=== PATIENT | female | born 1995 | race Caucasian/White ===

== ENCOUNTER 2023-11-21 15:26 | Outpatient (CLI) | payer BC, SELFPAY | END 2023-11-21 15:27 | disposition home or self-care (01) | LOC: NFLDREF 15:27 | PROVIDERS: Visit Provider Registered Nurse | DX: Z01.419 Encounter for gynecological examination (general) (routine) without abnormal findings (principal); Z13.6 Encounter for screening for cardiovascular disorders | CPT/HCPCS: 80061 ==

== ENCOUNTER 2024-04-09 07:53 | Outpatient (CLI) | payer BC, SELFPAY ==
--- NOTE | 2024-04-09 08:00 | CRLHL7_ITS ---
For Patients: As a result of the Century Cures Act, medical imaging exams and procedure reports are released immediately into your electronic medical record. You may view this report before your referring provider. If you have questions, please contact your health care provider. INDICATION: First trimester scan, establish dates. COMPARISON: None. TECHNIQUE: Real-time stockton-scale imaging of the pelvis was performed. FINDINGS: Intrauterine gestational sac measures 1.9 cm, 6 weeks 6 days. pole is present measuring 6.7 millimeters, 6 weeks 4 days. Yolk sac measures 5.5 millimeters. heart rate 121 beats per minute. Corpus luteal cyst right ovary. Unremarkable left ovary. No subchorionic hemorrhage. IMPRESSION: Early intrauterine with sonographic gestational age 6 weeks 4 days and sonographic due date of 11/29/2024. Upper limits normal yolk sac. Lower limits normal heart rate. Short-term follow-up recommended. Dictated by Stuart Yu MD @ 04/09/2024 10:26:49 AM (Electronically Signed)
== END 2024-04-09 07:54 | disposition home or self-care (01) ==
LOC: US 07:54
PROVIDERS: Visit Provider Physician Assistant
DX: Z34.91 Encounter for supervision of normal pregnancy, unspecified, first trimester (principal); Z3A.01 Less than 8 weeks gestation of pregnancy
CPT/HCPCS: 76817; 86592; 86703; 86704; 86706; 86762; 86787; 86803; 86850; 86900; 86901; 87086; 87340; 87491; 87591

== ENCOUNTER 2024-04-26 13:49 | Outpatient (CLI) | payer BC, SELFPAY ==
--- NOTE | 2024-04-26 14:00 | CRLHL7_ITS ---
For Patients: As a result of the Century Cures Act, medical imaging exams and procedure reports are released immediately into your electronic medical record. You may view this report before your referring provider. If you have questions, please contact your health care provider. OB ULTRASOUND COMPARISON: 04/09/2024. LMP: 02/17/2024. LUL by LMP: 11/23/2024. GA: 9 weeks 6 days. LUL by US: 11/29/2024. GA: 6 w, 4 d. INDICATION: Follow-up viability. FINDINGS: CRL: 2.1 cm. 8 w 5 d. LUL: 12/01/2024. FHR: 165 BPM. Gestational sac: 3.4 cm. Appears within normal limits. Yolk sac: 6.3 mm. Appears within normal limits. Right ovary: Within normal limits. 2.9 x 2.5 x 2.1 cm. Left ovary: N/V. IMPRESSION: 1. There is a viable IUP measuring 8 weeks 5 days. 2. Diffuse heterogeneity surrounding the gestational sac, potentially subchorionic hemorrhage. Short interval follow-up recommended. Alexandro Roger M.D. Body/Diagnostic Radiologist [email or web address] BLAYNE/digna sawyer/Dictated by: Alexandro Roger MD @ 04/27/2024 10:06:00 AM (Electronically Signed)
== END 2024-04-26 13:50 | disposition home or self-care (01) ==
LOC: US 13:50
PROVIDERS: Visit Provider Physician Assistant
DX: Z34.91 Encounter for supervision of normal pregnancy, unspecified, first trimester (principal); Z3A.09 9 weeks gestation of pregnancy
CPT/HCPCS: 76817

== ENCOUNTER 2024-05-07 12:57 | Outpatient (CLI) | payer BC, SELFPAY ==
--- NOTE | 2024-05-07 13:00 | CRLHL7_ITS ---
For Patients: As a result of the Century Cures Act, medical imaging exams and procedure reports are released immediately into your electronic medical record. You may view this report before your referring provider. If you have questions, please contact your health care provider. INDICATION: Follow-up hemorrhage COMPARISON: 04/26/2024 TECHNIQUE: Real-time stockton-scale imaging of the pelvis was performed. FINDINGS: Large subchorionic hemorrhage on the left noted measuring approximately 7.0 x 4.3 x 2.5 cm, previously measuring 5.4 x 3.5 x 4.8 cm. pole crown-rump length 4.2 cm, 11 weeks 0 days. Sonographic due date of 11/26/2024. Corpus luteal cyst right ovary. Unremarkable right ovary. Normal yolk sac measuring 4.6 millimeters. heart rate 146 beats per minute. Midgut deformity at the umbilical insertion is present. IMPRESSION: Increased size of the subchorionic hemorrhage now measuring up to 7 cm. Prominence of the midgut at the umbilical insertion, probably normal but can not exclude midgut herniation. Follow-up recommended. Dictated by Stuart Yu MD @ 05/09/2024 6:12:07 PM (Electronically Signed)
== END 2024-05-07 12:58 | disposition home or self-care (01) ==
LOC: US 12:58
PROVIDERS: Visit Provider Physician Assistant
DX: O20.8 Other hemorrhage in early pregnancy (principal)
CPT/HCPCS: 76817

== ENCOUNTER 2024-05-21 09:13 | Outpatient (CLI) | payer BC, SELFPAY ==
--- NOTE | 2024-05-21 09:15 | CRLHL7_ITS ---
For Patients: As a result of the Century Cures Act, medical imaging exams and procedure reports are released immediately into your electronic medical record. You may view this report before your referring provider. If you have questions, please contact your health care provider. INDICATION: Follow-up viability COMPARISON: 05/07/2024 TECHNIQUE: Real-time stockton-scale imaging of the pelvis was performed. FINDINGS/IMPRESSION: heart rate 149 beats per minute. No subchorionic hemorrhage. Placental schaefer is present measuring 1.7 x 1.0 x 1.1 cm. Corpus luteal cyst right ovary measures 2.5 x 2.0 x 1.4 cm. pole crown-rump length measures 6.3 cm, 12 weeks 5 days, 11/28/2024. Abdominal wall appears normal. Dictated by Stuart Yu MD @ 05/21/2024 10:04:23 AM (Electronically Signed)
== END 2024-05-21 09:14 | disposition home or self-care (01) ==
PROVIDERS: Visit Provider Registered Nurse
DX: O35.9XX0 Maternal care for (suspected) fetal abnormality and damage, unspecified, not applicable or unspecified (principal); O34.81 Maternal care for other abnormalities of pelvic organs, first trimester; N83.11 Corpus luteum cyst of right ovary; Z3A.12 12 weeks gestation of pregnancy; Z37.9 Outcome of delivery, unspecified
CPT/HCPCS: 76816

== ENCOUNTER 2024-07-16 07:13 | Outpatient (CLI) | payer BC, SELFPAY | END 2024-07-16 07:14 | disposition home or self-care (01) | PROVIDERS: Visit Provider Obstetrics & Gynecology | DX: Z34.92 Encounter for supervision of normal pregnancy, unspecified, second trimester (principal); Z3A.20 20 weeks gestation of pregnancy | CPT/HCPCS: 76805 ==

== ENCOUNTER 2024-09-07 08:06 | Outpatient (CLI) | payer BC, SELFPAY ==
--- NOTE | 2024-09-07 08:15 | CRLHL7_ITS ---
For Patients: As a result of the Century Cures Act, medical imaging exams and procedure reports are released immediately into your electronic medical record. You may view this report before your referring provider. If you have questions, please contact your health care provider. OB ULTRASOUND LMP: 02/17/2024. LUL by US: 11/29/2024. GA: 28 w, 1 d. Single. Comparison: 07/16/2024, 05/21/2024, 05/07/2024. INDICATION: Placental lakes and velamentous CI. TECHNIQUE: Real time grayscale imaging of the fetus was performed. Transabdominal. CERVIX: Not visualized. POSITIONING: Vertex. AMNIOTIC FLUID: 6.6 cm. SDP (N: greater than 2 x 1 cm) PLACENTA: Technique: Transabdominal. PLACENTA POSITION: Anterior, posterior, right wall. DOPPLER: heart rate: 157 bpm. BIOMETRY: BPD: 7.7 cm. 31 w, 0 d, >97 percent. HC: 27.8 cm. 30 w, 3 d, 85.2 percent. AC: 25.2 cm. 29 w, 3 d, 79.1 percent. FL: 5.3 cm. 28 w, 1 d, 35.2 percent. FL/AC ratio: 21.0 percent. HC/AC ratio: 1.1. EFW: 1352 g. Weight: 3 lbs, 0 oz. age by this US: 29 w, 5 d. LUL by this US: 11/18/2024. Percentile by LUL: 77.4 percent. IMPRESSION: 1. Placental schaefer adjacent to the cord insertion measures 4.1 x 3.1 x 1.5 cm. 2. Sonographic gestational age 29 weeks 5 days and sonographic due date 11/18/2024. Sonographic age 11 days ahead of the clinical age. 3. Estimated weight 77th percentile. Abdominal circumference 79th percentile. Biparietal diameter greater than 97th percentile. Stuart Yu M.D. Diagnostic Radiologist [email or web address] RAMON/digna sawyer/Dictated by: Stuart Yu MD @ 09/07/2024 12:29:00 PM (Electronically Signed)
== END 2024-09-07 08:07 | disposition home or self-care (01) ==
LOC: US 08:07
PROVIDERS: Visit Provider Obstetrics & Gynecology
DX: O43.123 Velamentous insertion of umbilical cord, third trimester (principal); O36.63X0 Maternal care for excessive fetal growth, third trimester, not applicable or unspecified; Z3A.28 28 weeks gestation of pregnancy
CPT/HCPCS: 76816

== ENCOUNTER 2024-09-07 09:19 | Outpatient (CLI) | payer BC, SELFPAY | END 2024-09-07 09:20 | disposition home or self-care (01) | LOC: NFLDREF 09:19 | PROVIDERS: Visit Provider Obstetrics & Gynecology | DX: Z34.83 Encounter for supervision of other normal pregnancy, third trimester (principal); Z67.41 Type O blood, Rh negative | CPT/HCPCS: 86592; 86850; J2791 ==

== ENCOUNTER 2024-10-15 07:14 | Outpatient (CLI) | payer BC, SELFPAY ==
--- NOTE | 2024-10-15 07:15 | CRLHL7_ITS ---
For Patients: As a result of the Century Cures Act, medical imaging exams and procedure reports are released immediately into your electronic medical record. You may view this report before your referring provider. If you have questions, please contact your health care provider. OB ULTRASOUND FOLLOW-UP ANATOMY AND PLACENTA Clinical History: LMP: 02/17/2024. LUL by US: 11/29/2024. GA: 33 w, 4 d. Single. Comparison: 09/07/2024, 07/16/2024, 05/21/2025. INDICATION: Follow-up renal arteries, placental schaefer, cord insert. TECHNIQUE: Real time stockton scale imaging of the fetus was performed. Transabdominal imaging performed. CERVIX: Not visualized. POSITIONING: Vertex. AMNIOTIC FLUID: 4.8 cm SDP (N: greater than 2 x 1 cm) PLACENTA: Technique: Transabdominal. PLACENTA POSITION: Anterior/posterior, right wall. DOPPLER: heart rate: 131 bpm. BIOMETRY: BPD: 9.3 cm. 37 w, 4 d, >97 percent. HC: 32.4 cm. 36 w, 5 d, 88.1 percent. AC: 29.6 cm. 33 w, 4 d, 51.7 percent. FL: 6.5 cm. 33 w, 4 d, 37.8 percent. FL/AC ratio: 21.9 percent. HC/AC ratio: 1.1. EFW: 2380 g. Weight: 5 lbs, 4 oz. age by this US: 35 w, 3 d. LUL by this US: 11/16/2024. Percentile by LUL: 62.9 percent. IMPRESSION: 1. Sonographic gestational age 35 weeks 3 days and sonographic due date 11/16/2024. Sonographic age is 13 days ahead of the clinical age. 2. Estimated weight 63rd percentile. Abdominal circumference 52nd percentile. 3. Right anterior/posterior bilobed placenta is present with the cord insertion located centrally. No previa. There is a placental schaefer near the cord insertion which measures 5.0 x 2.8 x 1.7 cm. 4. The stomach, bladder, kidneys and renal arteries appear normal. Stuart Yu M.D. Diagnostic Radiologist [email or web address] SP/Dictated by: Stuart Yu MD @ 10/15/2024 11:20:00 AM (Electronically Signed)
== END 2024-10-15 07:15 | disposition home or self-care (01) ==
LOC: US 07:15
PROVIDERS: Visit Provider Obstetrics & Gynecology
DX: O43.123 Velamentous insertion of umbilical cord, third trimester (principal); O36.63X0 Maternal care for excessive fetal growth, third trimester, not applicable or unspecified; Z3A.33 33 weeks gestation of pregnancy
CPT/HCPCS: 76816

== ENCOUNTER 2024-11-02 15:06 | Outpatient (CLI) | payer BC, SELFPAY ==
[2024-11-03 20:37] LABS: Strep B DNA Probe Negative (Negative)
[2024-11-03 21:38] LABS: Strep B Susceptibility Needed? No
== END 2024-11-02 15:07 | disposition home or self-care (01) ==
LOC: NFLDREF 15:06
PROVIDERS: Visit Provider Obstetrics & Gynecology
DX: Z34.93 Encounter for supervision of normal pregnancy, unspecified, third trimester (principal); Z3A.36 36 weeks gestation of pregnancy
CPT/HCPCS: 87081; 87653

== ENCOUNTER 2024-11-09 16:36 | Outpatient (CLI) | payer BC, SELFPAY ==
--- NOTE | 2024-11-09 16:45 | CRLHL7_ITS ---
For Patients: As a result of the Century Cures Act, medical imaging exams and procedure reports are released immediately into your electronic medical record. You may view this report before your referring provider. If you have questions, please contact your health care provider. OBSTETRICAL ULTRASOUND ??? FOLLOW-UP, 11/09/2024 INDICATION: Uterine size for dates discrepancy; small for dates. CLINICAL HISTORY: LUL by US: 11/29/2024 Gestational Age: 37 weeks 1 day COMPARISON: 10/15/2024, 09/07/2024, 07/16/2024. TECHNIQUE: Real-time stockton-scale transabdominal imaging of the fetus was performed. FINDINGS: Fetus: Single Cervix: Not visualized positioning: Vertex Amniotic Fluid: 6.4 cm SDP Placenta technique: Transabdominal Placenta position: Anterior, posterior, right wall heart rate: 123 bpm BIOMETRY: BPD: 9.8 cm, 40 weeks 0 days, >97% HC: 34.0 cm, 39 weeks 1 day, 72.7% AC: 31.9 cm, 35 weeks 6 days, 26.7% FL: 7.3 cm, 37 weeks 1 day, 50.1% FL/AC Ratio: 22.76% HC/AC ratio: 1.07 EFW: 3083 grams; 6 lbs. 13 oz. age by this ultrasound: 38 weeks 0 days LUL by this ultrasound: 11/23/2024 Percentile by LUL: 52.5% IMPRESSION: 1. Sonographic gestational age 38 weeks 0 days and sonographic due date 11/23/2024. Sonographic age is 6 days ahead of the clinical age. 2. Estimated weight is 53rd percentile. Abdominal circumference is 27th percentile. BPD is greater than 97th percentile. 3. The renal pelvis measures 5 mm on the right and 5.1 mm on the left, considered within normal limits at this gestational age. 4. Similar appearance of the hypoechoic collection of fluid associated with the placenta. This measures 6.0 x 1.1 x 2.6 cm. STUART DUVAL M.D. Diagnostic Radiologist [email or web address] Transcribed: 10:[address]/Dictated by: Stuart Duval MD @ 11/10/2024 6:55:00 AM (Electronically Signed)
== END 2024-11-09 16:37 | disposition home or self-care (01) ==
LOC: US 16:37
PROVIDERS: Visit Provider Obstetrics & Gynecology
DX: O26.843 Uterine size-date discrepancy, third trimester (principal); Z3A.37 37 weeks gestation of pregnancy
CPT/HCPCS: 76816

== ENCOUNTER 2024-11-29 18:26 | Inpatient (IN) | payer BC, SELFPAY ==
[2024-11-29] VITALS (14 sets, daily range): BP systolic 119–137; BP diastolic 59–84; PULSE 72–120; O2SAT 100; BMI 26.1
--- NOTE | 2024-11-29 18:41 | W.PM.LDBA ---
Subjective History of Present Illness Date Seen: 11/29/24 Narrative: Patient is being admitted to Labor and Delivery for early labor. She is a 28 year old at 40 0/7 weeks' gestation. Her full history and physical was dictated by Dr. Mak on 11/09/24. Please see this for details. Specific Issues/Plans Partner: Zane Baby: surprise! NIPT: low risk H&P: Dr. Mak 11/09 # Possible velamentous insertion vs venous browning Venous browning (1.7cm) at 12w4d US [x ] reassess at [facility] scan on 08/03/2024: Cord insertion over small placental venous Browning in right lateral aspect of placenta, no velamentous cord. Abdomen, right and left renal arteries not visualized. Follow-up in 1-4 weeks for complete anatomy survey was recommended by [place]. Follow up here 09/07: Anatomy not completed. Continued venous browning. Velamentous cord not mentioned on final report. Discussed with M. Repeat growth US at 34 weeks per [facility] with assessment of renal arteries and velamentous cord- see below #History of genital herpes Valtrex prescribed at 36 weeks # depression and anxiety Doing well on Lexapro 15 mg daily # Rh neg RhoGAM: 09/07 # possible subchorionic hemorrhage surrounding gestational sac measuring 5.4 cm. Follow-up ultrasound in 10-14 days: 05/07/24: Increased size of LUIS FERNANDO: 7cm. Probable normal mid gut herniation noted at the umbilical abdomen cord insertion. Resolved as of 05/21 #Influenza in - s/p tamiflu as of 06/19 Imagin04/09/2024: Viability scan. Six weeks, 4 days by CRL. 04/26/2024: 8 weeks, 5 days by CRL. Suspected subchorionic hemorrhage 05/07/2024: Subchorionic hemorrhage measuring 7 cm. Suspected mid gut herniation at the umbilical insertion site. 05/21/2024: Subchorionic hemorrhage resolved. Placental Browning measuring 1.7 cm in greatest dimension. Normal abdominal wall. FAS 07/16/24: Breech presentation, anterior placenta, not previa, three-vessel umbilical cord, possible velamentous cord insertion versus placental Browning?, cervix closed measuring 3.6 cm. Single deepest pocket of amniotic fluid 3.9 cm. BPD: 86 percentile, HC: 59th percentile, AC: 81 percentile, FL: 41 percentile, EFW: 408 g, 80th percentile. 08/03/2024: Level 2. Breech, anterior right lateral placenta, without placenta previa or vasa previa. Umbilical cord site reported as normal. No velamentous cord insertion. Cord is inserted over small placental venous browning. Fluid subjectively normal. EFW 55%. BPD 87%, AC 44%, femur 47%. Unable to visualize abdomen, right and left renal arteries. Otherwise, normal anatomy. 09/07/24: Cephalic, SDP 6.6, EFW 77.4%, AC 79.1%, BPD greater than 97%, HC 85.2%, FL 35.2%. Continued presence of placental browning adjacent to cord insertion measuring 4.1 x 3.1 x 1.5 cm. No assessment of anatomy otherwise. 10/15/2024: Vertex, SDP 4.8 cm, right anterior/posterior bilobed placenta with the cord insertion located centrally, no previa. There is a placental Browning near the cord insertion which measures 5.0 x 2.8 x 1.7 cm. stomach, bladder, kidneys, and renal arteries appear normal. EFW 63%, AC 52%. 11/09/24: EFW 53%, AC 27%. BPD >97%. Similar appearance of the hypoechoic collection of fluid associated with the placenta, 6.0 x 1.1 x 2.6 cm. Vaccinations: COVID: Declined Flu: 04/09/2024 Tdap: 09/20 RSV: n/a 32 week mental health: 10/04/24 Last pap:11/21/23 OB - Problem Based A/P Additional Plan (1) : Status: Acute Plan Early labor in multiparous patient with history of rapid labor. Term Intermittent category 2 tracing GBS negative Continuous monitoring. Delivery/Labor/Induction Plan Plan: expectant management OB Exam Physical Exam Vital signs: Pulse BP Pulse Ox 76 130/84 100 11/29/24 15:41 11/29/24 15:41 11/29/24 18:09 Narrative: Physical exam: General: No acute distress Psych: Alert and oriented x3, full affect HEENT: Normocephalic, atraumatic Neck: No cervical adenopathy Heart: Regular rate and rhythm, no murmur rub or gallop Lungs: Clear to auscultation bilaterally Abdomen: soft, nontender, gravid Lower extremities: No edema or erythema Pelvic exam: Per RN, Cervix initially 3 / 60 / -2 Repeat exam 2 hours later: 3.5 / 70 / -2 tracing: Baseline 130 / accelerations present / intermittent brief variable decelerations / moderate variability. There have been periods of minimal variability and recurrent variable decelerations over extended monitoring.
[2024-11-29] MEDS: LACTATED RINGERS 1000 ML 1,000 ML 900 ML IV (19:25)
[2024-11-29 19:28] LABS: Hematocrit 37.5 % (33.0-51.0); Hemoglobin* 12.6 gm/dL (12.0-16.0); Immature Granulocytes Pct Auto 0.2 %; Mean Corpuscular HGB Conc 34 gm/dL (32-36); Mean Corpuscular Hemoglobin 31 pg (26-34); Mean Corpuscular Volume 93 fL (80-100); RDW Coefficient of Variation % 12.9 % (11.5-15.5); Red Blood Count 4.04 m/uL (4.00-5.20); White Blood Count* 16.64 K/uL (4.50-11.00)
[2024-11-29 20:05] LABS: Immature Granulocytes Abs Auto 0.00 K/uL (0.00-0.30); Lymphocytes Absolute Auto 2.50 K/uL (0.90-2.90); Slide Review Reflex No
[2024-11-29] MEDS: OXYTOCIN 30 unit/500 ML in NS 30 UNIT/500 ML BAG 300 UNIT IVPB (21:18)
--- NOTE | 2024-11-29 22:57 | W.PM.VAGD1_ITS ---
Procedure Delivery date: 11/29/24 Procedure Done: Global Procedure Details: The patient is a 28 year-old G4 P 2 woman admitted on 11/29/2024 at 40 Weeks, 0 Days gestation for early labor.? Cervical exam on admission was / -2 with membranes intact in vertex presentation.? Contractions were every 3-5 minutes.? tracing: Baseline 130 / accelerations present / intermittent brief variable decelerations / moderate variability. There have been periods of minimal variability and recurrent variable decelerations over extended monitoring; intermittent category 2 tracing.? ? Labor Analgesia:? None ? Pitocin:? No ? Labor onset:? 7:51 p.m. ? Complete:? 9:12 p.m. Pushing:? 9:16 p.m. SROM occurred at 9:16 p.m. at time of delivery of infant with meconium-stained fluid. ? At 9:16 p.m. a viable male infant delivered in vertex OA presentation over intact perineum via spontaneous vaginal delivery.? Patient pushed only over the course of one contraction. Infant was placed on maternal abdomen.? Cord was clamped and cut after a 30-60 second delay.? Nose and mouth were bulb suctioned.? weight 2960 g = 6 lb, 8 oz, which is SGA.? 7 at 1 minute and 7 at 5 minutes.? Shoulder dystocia: No.? Nuchal cord: Yes; there was nuchal cord x2 and and abdominal cord as well. Infant was delivered through these and disentangled prior to being placed on his mother's abdomen. There were no lacerations. The placenta failed to deliver spontaneously after 30 minutes of a 3rd stage. I then donned sterile gloves and manually removed the placenta, which was thought to be bilobed on ultrasound. The placental disc did detach easily from the uterine wall, and was removed in 1 piece. The uterus was manually explored and no obvious placental fragments remained. Patient was given 2 g of IV cefazolin thereafter in prophylaxis against infection. Placenta was examined, and three- vessel cord was noted. It was sent to pathology for further analysis. ? Blood loss: 200 mL. Blood loss measurement type: EBL ? Sponge and needles counts are correct. Intrapartal Events: Precipitous Labor <3 Hrs Delivery monitor: external FHT Route of delivery: Episiotomy description: None Laceration description: None Anesthesia type: None Complications: Manual removal of the placenta
[2024-11-30] VITALS (7 sets, daily range): BP systolic 116–146; BP diastolic 71–92; PULSE 74–90; RESP 16–20; TEMP 36.6–37.6; O2SAT 97–100
[2024-11-30] MEDS: CEFAZOLIN 2 GM INJ IVP (00:12)
[2024-11-30 06:24] LABS: Hemoglobin* 11.3 gm/dL (12.0-16.0)
[2024-11-30] MEDS: DOCUSATE SODIUM 100 MG CAPSULE PO (08:08)
[2024-11-30] MEDS: IBUPROFEN 600 MG TABLET PO ×3 (08:08→20:20)
--- NOTE | 2024-11-30 13:27 | P.OBPN_ITS ---
OB - PN:Subj Subjective Date Seen: 11/30/24 Narrative: Adelaide is a 28 y.o. who was admitted to L & D for labor.? She had an uncomplicated NVD.? ?? The patient feels well.? The pain is well controlled with current medications.? She has no new complaints.? She is breast feeding and reports things are going well.? the patient has done well.? Vitals are now showing elevated BP in the mild ranges greater than 4 hours apart. Will draw preeclampsia labs now will not do urine ratio due to her status and lochia. Ordere Nifedipine 30mg daily to start now as well.? She has remained afebrile.? Has a good appetite, is tolerating a general diet.? She is voiding without di fficulty.? She is passing gas and has not had a bowel movement.? She is ambulating and denies any dizziness.? Has Small amount of rubra lochia.? OB - PN: Obj Exam Physical Exam: Vital signs: Temp Pulse Resp BP Pulse Ox O2 Del Method 97.9 F 84 16 146/90 H 100 Room Air 11/30/24 12:01 11/30/24 12:01 11/30/24 12:01 11/30/24 12:01 11/30/24 08:02 11/30/24 12:01 Narrative: GENERAL APPEARANCE:? normal affect, alert, no distress? MOOD:? appropriate? HEENT: normocephalic, neck supple, full ROM? CHEST:? Symmetrical chest wall movement.? Normal respiratory effort.? Clear to auscultation ? HEART:? regular rate and rhythm? ABDOMEN:? soft, non-tender. Uterine fundus is firm, at Umbilicus, Midline and is appropriate for the stage of recovery.? Bowel sounds present.? PERINEUM:? mild edema of the perineum, intact.? EXTREMITIES:? normal and no edema? OB - PN: Obj Data Labs Labs: Laboratory Results - last 24 hr 11/29/24 11/30/24 19:21 05:49 WBC 16.64 H RBC 4.04 Hgb 12.6 11.3 L Hct 37.5 MCV 93 MCH 31 MCHC 34 RDW Coeff of [place] 12.9 Plt Count 207 Neut % (Auto) 78.8 H Lymph % (Auto) 15.3 L [place] % (Auto) 5.0 Eos % (Auto) 0.4 Baso % (Auto) 0.3 Neut # (Auto) 13.10 H Lymph # (Auto) 2.50 [place] # (Auto) 0.80 Eos # (Auto) 0.10 Baso # (Auto) 0.00 Abs Immat Gran (auto) 0.00 Imm/Tot Granulo (auto) 0.2 Screen Negative OB - PN: A/P Delivery Assessment and Plan (1) care and examination of lactating mother: Status: Acute (2) hypertension: Status: Acute Plan day: 1 Plan: routine care Comments: G 4 P 3 status post uncomplicated NVD??? 1.? Continue route PP cares? 2.? .? May see if desired? 3. Monitor BPs, preeclampsia labs now and start Nifedipine 30mg daily now 3.? Anticipate discharge home tomorrow?
[2024-11-30 17:51] LABS: Hematocrit 32.6 % (33.0-51.0); Hemoglobin* 11.0 gm/dL (12.0-16.0); Mean Corpuscular HGB Conc 34 gm/dL (32-36); Mean Corpuscular Hemoglobin 31 pg (26-34); Mean Corpuscular Volume 93 fL (80-100); Red Blood Count 3.51 m/uL (4.00-5.20); White Blood Count* 12.65 K/uL (4.50-11.00)
[2024-11-30 17:55] LABS: Slide Review Reflex No
[2024-11-30 18:12] LABS: Alanine Aminotransferase* 13 U/L (4-35); Aspartate Amino Transferase* 37 U/L (12-35); Blood Urea Nitrogen* 12 mg/dL (5-24); Creatinine* 0.7 mg/dL (0.5-1.5); Est. Creatinine Clearance* 131.35; Estimated Glomerular Filt Rate 119 ml/min
[2024-12-01 00:18] VITALS: BP 124/82; PULSE 92; RESP 16; TEMP 36.8; O2SAT 98
[2024-12-01 04:41] VITALS: BP 126/86; PULSE 72; RESP 16; TEMP 36.5; O2SAT 100
[2024-12-01] MEDS: IBUPROFEN 600 MG TABLET PO ×2 (04:41→10:40)
--- NOTE | 2024-12-01 08:23 | P.DS_ITS ---
DS: Providers Provider Time Seen by Provider: 08:23 Date Seen: 12/01/24 Date of admission: 11/29/24 18:26 Primary care physician: Not a Local Provider Admitting Clinician: Xochitl Mak MD Attending Physician on discharge: Xochitl Mak MD Exam Narrative: Exam Narrative: Physical exam: General: No acute distress Psych: Alert and oriented x3, full affect Heart: Regular rate and rhythm, no murmur rub or gallop Lungs: Clear to auscultation bilaterally Abdomen: Soft, nontender nondistended. Fundus at umbilicus, palpates firm. Extremities: No significant lower extremity edema. No calf erythema, swelling or tenderness Const: Vital Signs, click to edit/add: Vital Signs - 24 hr 11/30/24 08:44 11/30/24 12:01 11/30/24 13:54 Temperature 97.9 F 97.8 F Pulse Rate 77 Pulse Rate [Pulse Oximeter] 84 Respiratory Rate 16 16 Blood Pressure 125/84 Blood Pressure [Ri ght Arm] 146/90 H 146/90 H Pulse Oximetry 98 Oxygen Delivery Me thod Room Air 11/30/24 17:42 11/30/24 20:25 12/01/24 00:18 Temperature 98.3 F 98.3 F 98.3 F Pulse Rate Pulse Rate [Pulse Oximeter] 79 90 92 Respiratory Rate 17 16 16 Blood Pressure Blood Pressure [Ri ght Arm] 126/82 137/88 124/82 Pulse Oximetry 98 99 98 Oxygen Delivery Me thod Room Air Room Air Room Air 12/01/24 04:41 Temperature 97.7 F Pulse Rate Pulse Rate [Pulse Oximeter] 72 Respiratory Rate 16 Blood Pressure Blood Pressure [Ri ght Arm] 126/86 Pulse Oximetry 100 Oxygen Delivery Me thod Room Air OB - DS: Summary Hospital Course Hospital Course: The patient is a 28 year old G 4 P 3 at 40 weeks gestation that was admitted to the Center on 11/29/24 for spontaneous onset. She had an uncomplicated vaginal delivery, but did require manual removal of the placenta. She delivered a viable male infant. She is breast feeding. the patient has done well. [place] notes she is feeling well today. She had intermittent sleep overnight. She denies any significant abdominal or pelvic pain, lochia described as small volume. Tolerating p.o. intake without nausea or vomiting. Ambulates without difficulty. She is breast-feeding successfully baby Betancourt. Patient has had intermittent headache, neck and periscapular pain. She notes she has some discomfort bilaterally along the distribution of her paraspinal muscles in the low cervical to thoracic range when taking a deep breath. She is clear and consistent that she does not have chest pain, dyspnea, dizziness/lightheadedness nor pleuritic chest pain. Vital signs are entirely within normal limits. Her back pain and headache both responded to ibuprofen and Tylenol. She denies vision changes or right upper quadrant pain. She was started on nifedipine XL 30 mg daily yesterday after new diagnosis of gestational hypertension. Overnight, her blood pressures have been in the normal range. Patient has noted large volume spontaneous voiding episodes overnight, ins/outs not documented any motor. No bowel concerns. Denies fever/chills. Peripartum Data Infant delivery method: Vaginal complications: retained placenta Amanda Infant Gender: Male Time Spent with Patient Time attestation: Total time spent providing and/or coordinating discharge services: Discharge Plan Discharge Disposition: Home, Self-Care Date of Admission: 11/29/24 18:26 Primary Care Provider: Provider,Not a Local Condition: Stable Anticipated Discharge Date/Time: 12/01/24 08:33 Discharge Medications: New nifedipine 30 mg Tablet Extended Release 30 mg PO DAILY Qty: 30 0RF Continued [id number] 3 fatty no.1 27-1-300 mg capsule 1 cap PO DAILY famotidine 10 mg tablet,chewable 10 mg PO DAILY PRN escitalopram oxalate 10 mg tablet 15 mg PO QDAY Qty: 135 3RF Discontinued valacyclovir [Valtrex] 500 mg tablet 500 mg PO BID Qty: 60 1RF Discharge Orders: Discharge Order (Routine); Ordered 12/01/24 Ordered By: Serenity Schwartz Additional Instructions: Discharge instructions were reviewed with the patient including signs and symptoms of infection and home going medications Nothing vaginally for 6 weeks: no tampons or intercourse Do not drive while taking narcotic pain medication(s) Off Work or School for 8 weeks Symptoms to report to doctor: * Bleeding that saturates more than one pad per hour * Passing clots larger than the size of a golf ball * Pain not relieved by prescribed medication * Fever above 100.4 degrees Fahrenheit * A foul vaginal odor * Difficulty in emotions, mood, and functions * Thoughts of hurting yourself and/or * Painful, reddened area in your breast * Any drainage, redness, or tenderness in your IV/epidural site * Severe headache that doesn't improve after taking medications * Changes in vision, including temporary loss of vision, blurred vision, and/or light sensitivity * Upper abdominal pain (usually under ribs on the right side) * Decrease in urination or painful, frequent urinating * Chest pain * Shortness of breath * Tenderness or pain with redness and/swelling in the calf(s) of your leg [facility] for [facility] BP check 12/06/24 Call with BP greater than or equal to 160/110, unrelenting headache, vision changes or right upper quadrant pain. Optional 2-week visit: discuss infant feeding concerns, review control options and screen for anxiety/depression. 6-week visit for an annual exam. consultation services are available to all mothers and babies for the first year after delivery.? To make an appointment, please call [phone]. Activity Level: Activity as Tolerated Discharge Diet: Regular Follow Up Appointments: Provider,Not a Local [Primary Care Provider, Family Practice] Forms: [employer] Info Instructions
[2024-12-01] MEDS: DOCUSATE SODIUM 100 MG CAPSULE PO (09:21)
[2024-12-01 09:45] VITALS: BP 128/81; PULSE 76; RESP 14; TEMP 36.5; O2SAT 100
== END 2024-12-01 13:11 | disposition home or self-care (01) | DRG 541 ==
LOC: OB OUT 18:26 → OB 18:26
PROVIDERS: Advanced Practice Midwife; Admitting Provider Obstetrics & Gynecology; Visit Provider Obstetrics & Gynecology
DX: O36.5930 Maternal care for other known or suspected poor fetal growth, third trimester, not applicable or unspecified (principal); O13.5 Gestational [pregnancy-induced] hypertension without significant proteinuria, complicating the puerperium; O73.0 Retained placenta without hemorrhage; O62.3 Precipitate labor; O77.0 Labor and delivery complicated by meconium in amniotic fluid; O98.32 Other infections with a predominantly sexual mode of transmission complicating childbirth; A60.00 Herpesviral infection of urogenital system, unspecified; O26.893 Other specified pregnancy related conditions, third trimester; Z67.41 Type O blood, Rh negative; O99.344 Other mental disorders complicating childbirth; F32.A Depression, unspecified; F41.9 Anxiety disorder, unspecified; Z3A.40 40 weeks gestation of pregnancy; Z37.0 Single live birth
CPT/HCPCS: 36415; 82565; 84450; 84460; 84520; 85018; 85025; 85027; 85461; 86592; A9270; J0690; J2791; J7120